=== PATIENT | female | born 1940 | race Two or more races ===

== ENCOUNTER 2021-03-08 09:48 | Emergency (ER) | payer OTHER ==
[~2021-03-08] VITALS: Ht 152.4 cm; Wt 56.7 kg
[2021-03-08] MEDS ORDERED: ARICEPT10 MG (10:13)
[2021-03-08] MEDS ORDERED: FORTAMET500 MG PO (10:13)
[2021-03-08] MEDS ORDERED: ARIPIPRAZOLE OD10 MG (10:13)
[2021-03-08] MEDS ORDERED: MEMANTINE HCL10 MG PO (10:14)
== END 2021-03-08 14:46 | disposition home or self-care (01) ==
LOC: ER 09:48
DX: K52.89 Other specified noninfective gastroenteritis and colitis (principal)